=== PATIENT | female | born 1965 | race American Indian/Alaskan Native ===

== ENCOUNTER 2017-10-18 20:44 | Emergency (ER) | payer OTHER ==
[2017-10-18] MEDS ORDERED: ASPIRIN PO ONE (21:03)
[2017-10-18 21:17] LABS: Basophils # (Auto) 0.1 K/mm3 (0.0-0.1); Basophils % (Auto) 0.9 % (0.0-1.8); Eosinophils # (Auto) 0.3 K/mm3 (0.0-0.4); Eosinophils % (Auto) 3.3 % (0.0-4.3); Hematocrit 36.3 % (30.3-42.9); Hemoglobin 11.9 gm/dl (10.1-14.3); Lymphocytes # (Auto) 2.9 K/mm3 (1.2-5.4); Lymphocytes % (Auto) 32.1 % (13.4-35.0); Mean Corpuscular HGB Conc 33 % (30-34); Mean Corpuscular Hemoglobin 26 pg (28-32); Mean Corpuscular Volume 80 fl (79-97); Monocytes # (Auto) 0.5 K/mm3 (0.0-0.8); Monocytes % (Auto) 5.8 % (0.0-7.3); Platelet Count 269 K/mm3 (140-440); Red Blood Count 4.52 M/mm3 (3.65-5.03); Red Cell Distribution Width 14.2 % (13.2-15.2)
[2017-10-18 21:31] LABS: BUN/Creatinine Ratio 18; Blood Urea Nitrogen 14 mg/dL (7-17); Calcium 9.5 mg/dL (8.4-10.2); Hemolysis Index 4
--- NOTE | 2017-10-18 21:44 | XRay Report ---
FINAL REPORT PROCEDURE: XR CHEST ROUTINE 2V TECHNIQUE: PA and lateral chest radiographs were obtained. CPT 43042 HISTORY: sob COMPARISON: No prior studies are available for comparison. FINDINGS: Heart: Normal. Mediastinum/Vessels: Normal. Lungs/Pleural space: Normal. Bony thorax: No acute osseous abnormality. Other: IMPRESSION: Normal examination.
[2017-10-19] MEDS ORDERED: TORADOL IM ONE (01:48)
--- NOTE | 2017-10-19 01:48 | Emergency Department Report ---
ED Chest Pain HPI - General Chief Complaint: Chest Pain Stated Complaint: CP Time Seen by Provider: 10/19/17 01:34 Source: patient, RN notes reviewed Mode of arrival: Ambulatory Limitations: No Limitations - History of Present Illness Initial Comments: This is a 52-year-old female who is unknown to this provider, her primary care doctor is in [facility], reports a past medical history of chronic left-sided shoulder pain, asthma, hypertension, prediabetes, multiple rotator cuff surgeries. She is not , does not take oral contraceptives, and the patient denies DVT, pulmonary embolus risk factors. The patient presents to ER with a complaint of chest wall pain, left shoulder pain, and left paracervical neck pain. Her chest wall pain does not radiate to the back, distal arm, or distal neck. There is no vomiting or diaphoresis. She denies chest pain associated with shortness of breath. The patient reports the pain is intermittent over the past 4 days. No recent aspirin use or cocaine use. The patient does report that over the past few weeks she's been coughing and wheezing more, using her nebulizer more, she is not more short of breath currently, and she does not associate her chest pain with shortness of breath. MD Complaint: chest pain -: Gradual, days(s) Onset: during exertion Pain Location: left chest Pain Radiation: none Severity: mild Severity scale (0 -10): 10 Quality: aching Consistency: intermittent Improves With: medication-other, rest Worsens With: palpation Treatments Prior to Arrival: none Aspirin use within the Past 7 Days: (0) No - Related Data On Oral Contraceptives: No Previous Rx's Medication Instructions Recorded Last Taken Type Acetaminophen [Tylenol Arthritis] 650 mg PO Q6HR PRN #30 tablet.er 10/19/17 Unknown Rx Aspirin [Aspirin BABY CHEW TAB] 81 mg PO QDAY #30 tab.chew 10/19/17 Unknown Rx Ibuprofen [Motrin] 600 mg PO Q8H PRN #30 tablet 10/19/17 Unknown Rx Allergies Allergy/AdvReac Type Severity Reaction Status Date / Time hydrocodone Allergy Unknown Verified 10/18/17 21:03 morphine Allergy Unknown Verified 10/18/17 21:03 Heart Score - HEART Score History: Slightly suspicious EKG: Normal Age: 45-65 Risk factors: 1-2 risk factors Troponin: < normal limit HEART Score: 2 - Critical Actions Critical Actions: 0-3 pts:0.9-1.7%risk of adverse cardiac event.Candidate for discharge ED Review of Systems ROS: Stated complaint: CP Other details as noted in HPI Constitutional: denies: chills, fever Eyes: denies: eye pain, eye discharge, vision change ENT: denies: ear pain, throat pain Respiratory: denies: cough, shortness of breath, wheezing Cardiovascular: chest pain. denies: palpitations Endocrine: no symptoms reported Gastrointestinal: denies: abdominal pain, nausea, diarrhea Genitourinary: denies: urgency, dysuria, discharge Musculoskeletal: denies: back pain, joint swelling, arthralgia Skin: denies: rash, lesions Neurological: denies: headache, weakness, paresthesias Psychiatric: denies: anxiety, depression Hematological/Lymphatic: denies: easy bleeding, easy bruising ED Past Medical Hx - Past Medical History Hx Hypertension: Yes Hx Diabetes: Yes Hx Asthma: Yes - Surgical History Additional Surgical History: tonsillectomy,hysterectomy, bilateral rotator cuff surgeries,c-sections - Social History Smoking Status: Current Every Day Smoker Substance Use Type: None - Medications Home Medications: Home Medications Medication Instructions Recorded Confirmed Last Taken Type Acetaminophen [Tylenol Arthritis] 650 mg PO Q6HR PRN #30 tablet.er 10/19/17 Unknown Rx Aspirin [Aspirin BABY CHEW TAB] 81 mg PO QDAY #30 tab.chew 10/19/17 Unknown Rx Ibuprofen [Motrin] 600 mg PO Q8H PRN #30 tablet 10/19/17 Unknown Rx ED Physical Exam - General Limitations: No Limitations General appearance: alert, in no apparent distress - Head Head exam: Present: atraumatic, normocephalic - Eye Eye exam: Present: normal appearance, EOMI. Absent: nystagmus - ENT ENT exam: Present: normal exam, normal orophraynx, mucous membranes moist, normal external ear exam - Neck Neck exam: Present: normal inspection, full ROM. Absent: tenderness, meningismus - Respiratory Respiratory exam: Present: normal lung sounds bilaterally, chest wall tenderness , other (bilateral breasts are nontender, there is reproducible left-sided chest wall tenderness. During this examination, escorted by nurse Finn Benoit). Absent: respiratory distress - Cardiovascular Cardiovascular Exam: Present: regular rate, normal rhythm, normal heart sounds. Absent: bradycardia, tachycardia, irregular rhythm, systolic murmur, diastolic murmur, rubs, gallop - GI/Abdominal GI/Abdominal exam: Present: soft, normal bowel sounds. Absent: distended, tenderness, guarding, rebound, rigid, pulsatile mass - Extremities Exam Extremities exam: Present: normal inspection, full ROM, tenderness (there is reproducible left-sided shoulder tenderness, and acromioclavicular tenderness. There is no redness, pus or streaking), normal capillary refill, other ( compartments are soft. 2+ pulses noted in the bilateral upper, lower extremities.). Absent: pedal edema, joint swelling, calf tenderness - Back Exam Back exam: Present: normal inspection, full ROM. Absent: tenderness, CVA tenderness (R), paraspinal tenderness, vertebral tenderness - Neurological Exam Neurological exam: Present: alert, oriented X3, CN II-XII intact, normal gait, other (Extraocular movements intact. Tongue midline. No facial droop. Facial sensation intact to light touch in the V1, V2, V3 distribution bilaterally. 5 and 5 strength in 4 extremities.. Sensation is intact to light touch in 4 extremities.). Absent: motor sensory deficit - Psychiatric Psychiatric exam: Present: normal affect, normal mood - Skin Skin exam: Present: warm, dry, intact, normal color. Absent: rash ED Course Vital Signs 10/18/17 10/19/17 10/19/17 20:57 01:38 01:57 Temperature 97.8 F 98.1 F Pulse Rate 95 H 89 Respiratory 18 16 16 Rate Blood Pressure 169/100 Blood Pressure 140/92 [Right] O2 Sat by Pulse 98 98 Oximetry AUBREY score - Aubrey Score Age > 65: (0) No Aspirin use within the Past 7 Days: (0) No 3 or more CAD Risk Factors: (0) No 2 or more Angina events in past 24 hrs: (0) No Known CAD with more than 50% Stenosis: (0) No Elevated Cardiac Markers: (0) No ST Deviation Greater than 0.5mm: (0) No AUBREY Score: 0 ED Medical Decision Making - Lab Data Result diagrams: 10/18/17 21:06 10/18/17 21:06 Vital Signs 10/18/17 10/19/17 10/19/17 20:57 01:38 01:57 Temperature 97.8 F 98.1 F Pulse Rate 95 H 89 Respiratory 18 16 16 Rate Blood Pressure 169/100 Blood Pressure 140/92 [Right] O2 Sat by Pulse 98 98 Oximetry Lab Results 10/18/17 10/18/17 10/19/17 Range/Units 21:06 21:06 00:33 WBC 9.0 (4.5-11.0) K/mm3 RBC 4.52 (3.65-5.03) M/mm3 Hgb 11.9 (10.1-14.3) gm/dl Hct 36.3 (30.3-42.9) % MCV 80 (79-97) fl MCH 26 L (28-32) pg MCHC 33 (30-34) % RDW 14.2 (13.2-15.2) % Plt Count 269 (140-440) K/mm3 Lymph % (Auto) 32.1 (13.4-35.0) % [place] % (Auto) 5.8 (0.0-7.3) % Eos % (Auto) 3.3 (0.0-4.3) % Baso % (Auto) 0.9 (0.0-1.8) % Lymph # 2.9 (1.2-5.4) K/mm3 [place] # 0.5 (0.0-0.8) K/mm3 Eos # 0.3 (0.0-0.4) K/mm3 Baso # 0.1 (0.0-0.1) K/mm3 Seg Neutrophils % 57.9 (40.0-70.0) % Seg Neutrophils # 5.2 (1.8-7.7) K/mm3 Sodium 140 (137-145) mmol/L Potassium 4.0 (3.6-5.0) mmol/L Chloride 101.9 (98-107) mmol/L Carbon Dioxide 22 (22-30) mmol/L Anion Gap 20 mmol/L BUN 14 (7-17) mg/dL Creatinine 0.8 (0.7-1.2) mg/dL Estimated GFR > 60 ml/min BUN/Creatinine Ratio 18 % Glucose 101 H (65-100) mg/dL Calcium 9.5 (8.4-10.2) mg/dL Troponin T < 0.010 < 0.010 (0.00-0.029) ng/mL - EKG Data -: EKG Interpreted by Dc - EKG Data When compared to previous EKG there are: previous EKG unavailable 10/19/17 03:13 EKG #1 demonstrates sinus, 97 beats per minute, normal axis, normal intervals, not a STEMI. ED #2 is unchanged. - Radiology Data Radiology results: report reviewed, image reviewed X-ray of the chest is negative for acute disease - Medical Decision Making Differential diagnosis, including but not limited to, Costochondritis, arthritis, pneumonia, GERD, gastritis, acute coronary syndrome , pericarditis, myocarditis Assessment and plan: 52-year-old female, who has no pulmonary embolus or DVT risk factors, who is low risk by well's criteria, who is low risk by heart score , low risk by AUBREY score, neither tachycardic nor febrile, negative troponin, normal EKG 2, reproducible chest wall pain reproducible left-sided shoulder pain. Her symptoms are most likely coming from orthopedic etiology. The patient is at low risk for major adverse cardiac event. extensive discussion with the patient regarding options for cardiac risk stratification. The patient was to follow up as an outpatient with her primary care doctor or local internal sales engineer I did offer the patient admission to the hospital but she declined indicating that she would follow-up. Through shared decision making, we agreed to have the patient follow-up as an outpatient with outpatient cardiology. I think it is for likely the patient has coronary artery disease, and she indicates that she is reliable and will follow up with her on this week with outpatient cardiology. Furthermore, the patient's pain was much improved if supportive and symptomatic therapy. . Critical care attestation.: If time is entered above; I have spent that time in minutes in the direct care of this critically ill patient, excluding procedure time. ED Disposition Clinical Impression: Chest wall pain Disposition: [id number] TO HOME OR SELFCARE Is pt being admited?: No Does the pt Need Aspirin: No Condition: Stable Instructions: Chest Pain (ED), Costochondritis (ED) Additional Instructions: Take medications as needed/directed. Follow-up with an outpatient primary care doctor or internal sales engineer within the next 3-5 days. Rest, avoid heavy lifting, and avoid strenuous physical activity. Return to the ER right away with new pain, worsened pain, migration of pain, weakness, numbness, confusion, projectile vomiting, change in mental status, inability to tolerate liquid feeds. Referrals: PRIMARY CARE, [Primary Care Provider] - 3-5 Days [facility] [Provider Group] - 3-5 Days [facility] [Provider Group] - 3-5 Days
[2017-10-19 05:33] VITALS: BP 156/82
== END 2017-10-19 03:30 | disposition home or self-care (01) ==
LOC: ED 20:44
DX: R07.89 Other chest pain (principal); I10 Essential (primary) hypertension; E11.9 Type 2 diabetes mellitus without complications; J45.909 Unspecified asthma, uncomplicated; F17.200 Nicotine dependence, unspecified, uncomplicated; Z90.710 Acquired absence of both cervix and uterus; Z90.89 Acquired absence of other organs; Z79.82 Long term (current) use of aspirin; Z88.5 Allergy status to narcotic agent; Z88.8 Allergy status to other drugs, medicaments and biological substances
CPT/HCPCS: 36415; 71046; 80048; 84484; 85025; 93005; 93010; 96372; 99284; J1885